=== PATIENT | female | born 1950 | race Caucasian/White ===

== ENCOUNTER 2021-07-05 12:00 | Emergency (ER) | payer MEDICARE, BC, SELFPAY ==
[2021-07-05 12:40] VITALS: BP 172/82; PULSE 64; RESP 18; TEMP 36.6; O2SAT 99; BMI 30.9
--- NOTE | 2021-07-05 13:04 | DI.RAD.S_ITS ---
PROCEDURE: XR KNEE LT 3V INDICATIONS: left knee effusion, posterior knee pain, feels unstable TECHNIQUE: 3 views of the knee were acquired. COMPARISON: None. FINDINGS: Bones: No fractures or dislocations. No suspicious bony lesions. Moderate patellofemoral joint space narrowing Soft tissues: No joint effusion. No suspicious soft tissue calcifications. 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 on 07/05/2021 at 13:19
--- NOTE | 2021-07-05 13:05 | ED_ITS ---
HPI - Extremity Problem <SHANNA Mcwilliams - Last Filed: 07/05/21 14:47> General Chief complaint: Extremity Problem,Nontraumatic Stated complaint: pulled muscle in lt leg Time Seen by Provider: 07/05/21 12:48 Mode of arrival: Ambulatory History of Present Illness HPI Narrative: This is a 70-year-old female presents to the emergency department complaining left posterior knee pain after a hike 05/11/2021 in which she states was appro ximately 2 hours long and she did not have any knee pain prior to this. Patient states that over the last week it has been getting worse, she denies any history of arthritis in this knee, states that she is quite active and has never had knee pain prior to this. She states that it is swollen and feels unstable and she is concerned that she feels like it wants to give out in the back. She denies any trauma, falling, twisting motion but states that the hike was somewhat at a slant. She complains that it is not getting any better despite [id number] things she has tried. Related Data Allergies Allergy/AdvReac Type Severity Reaction Status Date / Time feathers Allergy Unknown Verified 07/05/21 12:45 latex Allergy Unknown Verified 07/05/21 12:45 red dye Allergy Unknown Verified 07/05/21 12:45 Review of Systems <SHANNA Mcwilliams - Last Filed: 07/05/21 14:47> Review of Systems Narrative: General: denies fever, chills, malaise, sweats, fatigue Head/Neck: denies headache, neck pain, dizziness Eyes: denies visual changes, eye pain Cardio: denies chest pain, palpitations, edema Respiratory: denies dyspnea, cough, orthopnea MSK: Endorses left knee pain, denies any muscle weakness, endorses sensation of instability in the posterior aspect Skin: denies rash, itching, skin lesions or other Neuro: denies numbness, tingling Patient History <SAHNNA Mcwilliams - Last Filed: 07/05/21 14:47> Social History Smoking Status: Never smoker Smoking Status: Never smoker alcohol intake frequency: 0-2 drinks per day Substance Use Type: does not use Exam <SHANNA Mcwilliams - Last Filed: 07/05/21 14:47> Narrative Exam Narrative: Independently reviewed vitals signs and nursing notes. General: cooperative, comfortable, in no acute distress, well developed and well groomed Head: atraumatic, symmetrical facial expressions Neck: supple, atraumatic, without lymphadenopathy. Eyes: pupils equal round and reactive, EOMI, conjunctiva normal Nose: nares patent, no rhinorrhea Cardiovascular: regular rate and rhythm, no peripheral edema, warm extremities MSK: moves all extremities, ambulatory w/steady gait, neurovascularly intact, no weakness supra patellar edema and positive wave test over left knee, no tenderne ss over LCL or MCL, Esthela test with full stop anteriorly and posteriorly, no rash, no erythema or warmth, patient able to fully flex and fully extend without deficit. Skin: brisk capillary refill, no rash, no erythema Neuro: normal speech and cognition, A&O x3, normal tone Psych: mental status is grossly normal, congruent mood, normal affect, pleasant and cooperative Initial Vital Signs Initial Vital Signs: Vital Signs Temperature 97.8 F 07/05/21 12:40 Pulse Rate 64 07/05/21 12:40 Respiratory Rate 18 07/05/21 12:40 Blood Pressure 172/82 H 07/05/21 12:40 Pulse Oximetry 99 07/05/21 12:40 <Aylin Black MD - Last Filed: 07/06/21 07:39> Initial Vital Signs Initial Vital Signs: Vital Signs Temperature 97.8 F 07/05/21 12:40 Pulse Rate 64 07/05/21 12:40 Respiratory Rate 18 07/05/21 12:40 Blood Pressure 172/82 H 07/05/21 12:40 Pulse Oximetry 99 07/05/21 12:40 Course <SHANNA Mcwilliams - Last Filed: 07/05/21 14:47> Orders Ordered: Discontinued Medications Acetaminophen (Acetaminophen 325 Mg Tablet) 975 mg PO NOW ONE Stop: 07/05/21 13:57 Last Admin: 07/05/21 14:06 Dose: 975 mg Documented by: GARRETT Diclofenac Sodium (Diclofenac 1% Gel 100 Gm) 1 applic TOP NOW ONE Stop: 07/05/21 13:58 Last Admin: 07/05/21 14:09 Dose: 1 applic Documented by: GARRETT Ibuprofen (Ibuprofen 400 Mg Tablet) 600 mg PO NOW ONE Stop: 07/05/21 13:58 Last Admin: 07/05/21 14:05 Dose: 600 mg Documented by: GARRETT Vital Signs Vital signs: Vital Signs - 8 hr 07/05/21 12:40 07/05/21 14:11 Temperature 97.8 F Pulse Rate 64 Pulse Rate [Left Dorsalis Pedis] 70 Respiratory Rate 18 Blood Pressure 172/82 H Pulse Oximetry 99 <Aylin Black MD - Last Filed: 07/06/21 07:39> Orders Ordered: Discontinued Medications Acetaminophen (Acetaminophen 325 Mg Tablet) 975 mg PO NOW ONE Stop: 07/05/21 13:57 Last Admin: 07/05/21 14:06 Dose: 975 mg Documented by: GARRETT Diclofenac Sodium (Diclofenac 1% Gel 100 Gm) 1 applic TOP NOW ONE Stop: 07/05/21 13:58 Last Admin: 07/05/21 14:09 Dose: 1 applic Documented by: GARRETT Ibuprofen (Ibuprofen 400 Mg Tablet) 600 mg PO NOW ONE Stop: 07/05/21 13:58 Last Admin: 07/05/21 14:05 Dose: 600 mg Documented by: GARRETT Vital Signs Vital signs: Vital Signs - 8 hr 07/05/21 12:40 07/05/21 14:11 Temperature 97.8 F Pulse Rate 64 Pulse Rate [Left Dorsalis Pedis] 70 Respiratory Rate 18 Blood Pressure 172/82 H Pulse Oximetry 99 MDM - Extremity (Nontraumatic) <SHANNA Mcwilliams - Last Filed: 07/05/21 14:47> Imaging Data Extremity x-ray #1: Radiologist's Impression: PROCEDURE:? XR KNEE LT 3V ? INDICATIONS:? left knee effusion, posterior knee pain, feels unstable ? TECHNIQUE:? 3 views of the knee were acquired.? ? COMPARISON:? None. ? FINDINGS:? ? Bones:? No fractures or dislocations.? No suspicious bony lesions.? Moderate patellofemoral joint space narrowing ? Soft tissues:? No joint effusion.? No suspicious soft tissue calcifications.? ? ? IMPRESSION:? ? 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 ? ? Approved by: Eric Hernández M.D. on 07/05/2021 at 13:19? [facility] Narrative Medical decision making narrative: This is a pleasant 70-year-old female presents to the emergency department complaining of left knee pain for the last 2 months after a strenuous hike the lasted 2 hours. She denies any weakness, swelling, fever, or wound. She denies any trauma either. X-ray shows moderate patellofemoral osteoarthritis without joint effusion. On exam, patient has mild amount edema and a positive wave test superior to the patella and without warmth, erythema, instability on exam. No tenderness over LCL or MCL, Esthela test with full stop anteriorly and posteriorly. Patient requested a referral to [facility] for evaluation, she was given a phone number, encouraged to follow-up with her primary care provider for a referral to physical therapy. Patient was given Tylenol and ibuprofen in the emergency department, Voltaren gel, and recommended to continue light activity, ice, and pmyi-sum-pauaczi medications as needed. Patient is appropriate and amenable to discharge home. Vital signs are stable on repeat examination is unremarkable. Patient has been informed of results. Patient has been given strict return to ER precautions for any new or worsening symptoms. Patient understands to follow up closely with outpatient providers as instructed. Patient understands plan and agrees to discharge home. All questions and concerns answered at this time. Discharge Plan Departure Patient Disposition: Home Clinical Impression: Arthrosis of patellofemoral joint Instructions: Patellofemoral Pain Syndrome, Patellar Tendinopathy, DI for Patellofemoral Pain Syndrome-Adult Activity Restrictions/Additional Instructions: *You have been diagnosed with patellofemoral pain from joint space narrowing between your patella your left knee. This is common to become inflamed and tender after repetitive use or heavy activity. It is not indicated to immobilize this joint because arthritis likes activity, I recommend light activity daily to help prevent it from getting too stiff. Tylenol, ibuprofen if you tolerate it well, with food and water. You can use topical Voltaren gel, it is available gdke-gqi-yilhtoz, ice, or lidocaine patches if you have them. Thank you for trusting us with your care, there is no joint effusion, please follow-up with orthopedics and see your primary care provider for physical therapy. *What to do: *Please continue to take your regular medications as directed. [ ] New medication prescriptions sent to your pharmacy: [ ] [ ] New medication written as a paper prescription [ x] No new medications given *Please follow up with your primary care provider in 2-3 days, call for an appointment. Let them know you were seen in the Emergency Department and that we asked that you be seen for follow-up. We will electronically transmit a record of today's note if your PCP is in our system *If you do not have a primary care provider please contact [phone] to establish care with one of the [facility] primary care providers. *Return to Emergency Department if you should have any new, worsening or concerning symptoms, such as [fever greater than 101F, chills, worsening pain, persistent vomiting or other bothersome symptoms] Referrals: [facility] [Provider Group] Shayy Hernandez FNP-C [Primary Care Provider] - <Aylin Black MD - Last Filed: 07/06/21 07:39> [facility] I was immediately available in the department for consultation throughout this patient's visit. I agree with documentation as above. Aylin Black MD
[2021-07-05] MEDS: IBUPROFEN 400 MG TABLET 600 MG PO (14:05)
[2021-07-05] MEDS: ACETAMINOPHEN 325 MG TABLET 975 MG PO (14:06)
[2021-07-05] MEDS: DICLOFENAC 1% GEL 100 GM 1 APPLIC TOP (14:09)
[2021-07-05 14:11] VITALS: PULSE 70
== END 2021-07-05 14:52 | disposition home or self-care (01) ==
PROVIDERS: Emergency Provider Nurse Practitioner Critical Care Medicine; PCP Registered Nurse
DX: M17.12 Unilateral primary osteoarthritis, left knee (principal)
CPT/HCPCS: 73562; 99283; 99284

== ENCOUNTER → 2021-08-08 09:47 | Outpatient (CLI) | payer MEDICARE, BC, SELFPAY ==
--- NOTE | 2021-08-08 | DI.MRI.S_ITS ---
PROCEDURE: MR KNEE LT WO CON INDICATIONS: Synovial cyst of popliteal space [Boland], left kne TECHNIQUE: Noncontrast sagittal PD fast spin echo and T2 fast spin echo with fat saturation, sagittal 3-D FLASH with fat saturation; coronal T1 spin echo and PD fast spin echo with fat saturation, and axial PD fast spin echo with fat saturation through the knee. COMPARISON: [facility], CR, XR KNEE LT 3V, 07/05/2021, 13:22. FINDINGS: Image quality: Excellent. Menisci: Medial extrusion of the medial meniscus is present. There is amorphous and linear high signal intensity within the medial meniscal body and posterior horn, demonstrating inferior articular surface extension, indicating complex tearing. Linear horizontal high signal intensity traverses the anterior horn medial meniscus, involving the inner, middle, and peripheral thirds, demonstrating superior articular surface extension, indicating horizontal tearing. Linear oblique high signal intensity involves the inner, middle and peripheral thirds of the anterior horn and body of the lateral meniscus, demonstrating inferior articular surface extension, indicating oblique tearing. Cruciate ligaments: The anterior and posterior cruciate ligaments appear intact. Medial structures: The medial collateral ligament appears intact. Mild T2 signal elevation surrounds the medial collateral ligament. Visualized portions of the pes anserinus tendons appear normal. No abnormal bursal fluid. Lateral structures: The lateral collateral ligament, long and short heads of the biceps femoris tendon appear intact. The popliteus tendon appears normal. Iliotibial band appears normal. Anterior structures: The quadriceps and patellar tendons appear intact. Patellar alignment is normal. No femoral trochlear dysplasia or ventral trochlear prominence. No edema in the infrapatellar fat pad. Bones and cartilage: Linear subchondral low T1/T2 signal intensity traverses the mid and anterior weight-bearing aspects of the medial femoral condyle spanning roughly 20 mm anteroposterior by 10 mm transverse. There is moderate surrounding ill-defined T2 signal elevation within the medial femoral condyle. There is mild tricompartmental periarticular osteophyte formation. Mild articular cartilage loss diffusely overlies the weight-bearing aspects of the medial femoral condyle and medial tibial plateau, as well as the lateral femoral condyle and lateral tibial plateau. Severe articular cartilage loss overlies the medial and lateral patellar facets. Joint space: There is a moderate knee joint effusion and a small ganglion cyst along the popliteus. Trace Boland's cyst. Normal appearing synovial plicae are incidentally noted. IMPRESSION: 1. Medial and lateral meniscal tearing. 2. 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 3. Tricompartmental osteoarthritis with associated articular cartilage loss. 4. Knee joint effusion, Boland's cyst, and ganglion cyst along the popliteus. Dictated by: Anayeli Sosa M.D. on 08/08/2021 at 13:40 Approved by: Anayeli Sosa M.D. on 08/08/2021 at 13:46
== END ==
PROVIDERS: PCP Registered Nurse; Referring Provider Orthopaedic Surgery; Visit Provider Orthopaedic Surgery
DX: M71.22 Synovial cyst of popliteal space [Baker], left knee (principal); S83.282A Other tear of lateral meniscus, current injury, left knee, initial encounter; S83.242A Other tear of medial meniscus, current injury, left knee, initial encounter; M87.9 Osteonecrosis, unspecified; M17.12 Unilateral primary osteoarthritis, left knee; M25.462 Effusion, left knee; M67.462 Ganglion, left knee
CPT/HCPCS: 73721

== ENCOUNTER → 2021-09-25 13:51 | Outpatient (CLI) | payer MEDICARE, BC, SELFPAY ==
--- NOTE | 2021-09-25 13:54 | DI.CT.S_ITS ---
PROCEDURE: CT UE LT WO CON INDICATIONS: Pain in left wrist TECHNIQUE: Noncontrast 1 mm axial sections acquired through the carpal bones, with coronal and sagittal reformats. COMPARISON: [facility], CR, XR WRIST 3+ VIEWS LEFT, 09/24/2021, 15:35. FINDINGS: Image quality: Excellent. Bones: As seen on previous wrist radiograph, there is a comminuted and slightly impacted distal radial fracture with fracture line extending to radiocarpal joint space. There is up to 3 mm impaction and volar displacement at fracture site. No other fracture or dislocation is seen. No suspicious intraosseous lesion. Osteoarthritic changes are noted throughout wrist joints more prominent involving 1st CMC joint. Slight widening of scapholunate interval is seen concerning for injury to the scapholunate ligament. No evidence of osteonecrosis. Soft tissues: Mild wrist soft tissue swelling surrounding distal radial fracture site is seen. Small amount of radiocarpal joint effusion is noted. No intra-articular loose bodies. No abnormal soft tissue calcifications. No full-thickness extensor or flexor tendon rupture. IMPRESSION: 1. Slightly impacted and displaced comminuted distal radial intra-articular fracture as above. No other fracture or dislocation. 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 No evidence of osteonecrosis. 2. Slight widening of scapholunate interval concerning for partial-thickness tear involving scapholunate ligament. 3. Small joint effusion, no gross loose bodies. No abnormal soft tissue calcifications. Dictated by: Ramesh Lezama M.D. on 09/25/2021 at 16:43 Approved by: Ramesh Lezama M.D. on 09/25/2021 at 16:46
== END ==
PROVIDERS: PCP Registered Nurse; Referring Provider Orthopaedic Surgery; Visit Provider Orthopaedic Surgery
DX: S52.572A Other intraarticular fracture of lower end of left radius, initial encounter for closed fracture (principal); M19.032 Primary osteoarthritis, left wrist; M25.432 Effusion, left wrist; M25.532 Pain in left wrist; X58.XXXA Exposure to other specified factors, initial encounter
CPT/HCPCS: 73200

== ENCOUNTER → 2023-03-23 | Outpatient (CLI) | payer MEDICARE, BC, SELFPAY ==
--- NOTE | 2023-03-23 | DI.MRI.S_ITS ---
PROCEDURE: MR KNEE RT WO CON INDICATIONS: RIGHT KNEE PAIN TECHNIQUE: Noncontrast sagittal PD fast spin echo and T2 fast spin echo with fat saturation, sagittal 3-D FLASH with fat saturation; coronal T1 spin echo and PD fast spin echo with fat saturation, and axial PD fast spin echo with fat saturation through the knee. COMPARISON: [facility], MR, MR KNEE LT WO CON, 08/08/2021, 10:10. FINDINGS: Image quality: Excellent. Menisci: Complex oblique tear involving posterior horn of medial meniscus is seen extending to inferior articulating surface series 8, image 25, series 10 image 21. The lateral meniscus is intact. The meniscal root ligaments appear intact. Cruciate ligaments: The anterior cruciate ligament is thickened. The posterior cruciate ligament is intact. Medial structures: The medial collateral ligament appears mildw surrounding soft tissue edema. Visualized portion of the pes anserinus tendons appear normal. No abnormal bursal fluid. Lateral structures: The lateral collateral ligament, long and short heads of the biceps femoris tendon appear intact. The popliteus tendon appears normal. Iliotibial band appears normal. Anterior structures: The quadriceps and patellar tendons appear intact. Patellar alignment is normal. No femoral trochlear dysplasia or ventral trochlear prominence. No edema in the infrapatellar fat pad. Bones and cartilage: Moderate tricompartmental osteoarthritis and chondromalacia is seen most notably in medial femoral tibial compartment. Joint space: There is moderate knee joint fluid. No gross loose bodies. No Boland's cyst. Normal appearing synovial plicae are incidentally noted. IMPRESSION: 1. Complex oblique tear involving posterior horn of medial meniscus extending to inferior articulating surface. No focal lateral meniscal tear. 2. Degenerative changes versus low-grade sprain involving anterior cruciate ligament. No ACL rupture. The PCL is intact. 3. Low to moderate grade MCL sprain/partial-thickness tear. 4. 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 No fracture or dislocation. Small to moderate joint effusion, no gross loose bodies. Dictated by: Ramesh Lezama M.D. on 03/23/2023 at 17:29 Approved by: Ramesh Lezama M.D. on 03/23/2023 at 17:32
== END ==
LOC: MRI 15:32
PROVIDERS: PCP Registered Nurse; Referring Provider Orthopaedic Surgery; Visit Provider Orthopaedic Surgery
DX: S83.231A Complex tear of medial meniscus, current injury, right knee, initial encounter (principal); S83.411A Sprain of medial collateral ligament of right knee, initial encounter; M17.11 Unilateral primary osteoarthritis, right knee; M94.261 Chondromalacia, right knee; M25.461 Effusion, right knee; M25.561 Pain in right knee
CPT/HCPCS: 73721